=== PATIENT | female | born 1975 | race African-American/Black ===

== ENCOUNTER → 2016-07-16 | Outpatient (CLI) | payer BC ==
[~2016-07-16] MED LIST: NOHOMEMEDS
== END | disposition home or self-care (01) ==
LOC: NUC 08:00
DX: E05.00 Thyrotoxicosis with diffuse goiter without thyrotoxic crisis or storm (principal)
CPT/HCPCS: 78014; 78999; A9512; A9531

== ENCOUNTER 2016-11-03 18:59 | Emergency (ER) | payer OTHER, BC ==
[~2016-11-03] VITALS: Ht 175.3 cm; Wt 64.0 kg
[2016-11-03] MEDS ORDERED: VALIUM5 MG PO (19:31)
[2016-11-03] MEDS ORDERED: ULTRACET1 TABLET PO (19:31)
[2016-11-03] MEDS ORDERED: MOTRIN800 MG PO (19:31)
[2016-11-03 19:55] VITALS: BP 141/69
== END 2016-11-03 19:58 | disposition home or self-care (01) ==
LOC: EME 18:59
DX: S16.1XXA Strain of muscle, fascia and tendon at neck level, initial encounter (principal); S39.012A Strain of muscle, fascia and tendon of lower back, initial encounter; S46.912A Strain of unspecified muscle, fascia and tendon at shoulder and upper arm level, left arm, initial encounter; V49.40XA Driver injured in collision with unspecified motor vehicles in traffic accident, initial encounter
CPT/HCPCS: 99281; 99283